=== PATIENT | male | born 1980 ===

== ENCOUNTER → 2020-08-10 12:55 | Outpatient (BNVA) | payer OTHER, SELFPAY | PROVIDERS: PCP Family Medicine; Referring Provider Family Medicine; Visit Provider Nurse Practitioner Gerontology | DX: Z30.09 Encounter for other general counseling and advice on contraception (principal); N44.2 Benign cyst of testis | CPT/HCPCS: 99203 ==

== ENCOUNTER → 2020-09-13 09:48 | Outpatient (BNVA) | payer OTHER, SELFPAY | PROVIDERS: PCP Family Medicine; Referring Provider Family Medicine; Visit Provider Urology | DX: Z30.2 Encounter for sterilization (principal) | CPT/HCPCS: 55250 ==